=== PATIENT | female | born 1965 | race Caucasian/White ===

== ENCOUNTER 2018-04-10 09:44 | Emergency (ER) | payer BC ==
[2018-04-10 09:50] VITALS: BP 142/70; PULSE 86; RESP 18; TEMP 98.6
--- NOTE | 2018-04-10 10:00 | ED ---
General Adult HPI - General Chief complaint: Neck Pain/Injury Stated complaint: Headahce, shoulder pain Time Seen by Provider: 04/10/18 09:50 Source: patient, RN notes reviewed Mode of arrival: ambulatory Limitations: no limitations - History of Present Illness Initial comments: This is a 53-year-old female presents emergency Department complaining of headaches and left-sided neck pain since February 07. Patient states she is scheduled for an MRI of her shoulder and to follow-up with a neurologist. Patient states she's unable to do the MRI of the shoulder because she is claustrophobic. Patient canceled that MRI today. Patient states the neurology appointment isn't until May and she was hoping to get the MRI done here today. Patient states pain in the left side is mostly in the trapezius muscle. Patient has not been given any muscle relaxants and is having a difficult time taking Motrin because it upsets her stomach. Patient denies any numbness or weakness. Patient denies any trauma to the neck. Patient states the headache is constant in his in the left side of the head where the muscle seems to attach. Patient denies any recent fever chills. Patient denies any neck stiffness. Patient states it does hurt when she flexes her neck to the right. - Related Data Home Medications Medication Instructions Recorded Confirmed Aspirin/Acetaminophen/Caffeine 1 tab PO DAILY PRN 04/10/18 04/10/18 [Excedrin Migraine Caplet] Ibuprofen [Motrin] 800 mg PO TID PRN 04/10/18 04/10/18 Previous Rx's Medication Instructions Recorded Cyclobenzaprine [Flexeril] 10 mg PO TID #20 tab 04/10/18 Allergies Allergy/AdvReac Type Severity Reaction Status Date / Time No Known Allergies Allergy Verified 04/10/18 10:05 Review of Systems ROS Statement: Those systems with pertinent positive or pertinent negative responses have been documented in the HPI. ROS Other: All systems not noted in ROS Statement are negative. Past Medical History Additional Past Medical History / Comment(s): sciatica History of Any Multi-Drug Resistant Organisms: None Reported Past Surgical History: Breast Surgery, Orthopedic Surgery Additional Past Surgical History / Comment(s): R knee Past Psychological History: No Psychological Hx Reported Smoking Status: Current every day smoker Past Alcohol Use History: Occasional Past Drug Use History: None Reported General Exam - General Exam Comments Initial Comments: GENERAL Patient is well-developed and well-nourished. Patient is in mild distress. EYES Patient's pupils are equal and round. Extraocular motion is intact SKIN Unremarkable NEURO The patient is alert and oriented 3 PYSCH Patient has normal interpersonal interactions. MUSCULOSKELETAL Full range of motion of the neck however the left trapezius muscle is very tender to touch along the whole muscle. Limitations: no limitations Course Vital Signs 04/10/18 09:47 Temperature 98.6 F Pulse Rate 86 Respiratory 18 Rate Blood Pressure 142/70 O2 Sat by Pulse 100 Oximetry Medical Decision Making - Medical Decision Making Patient received Toradol IM in the emergency department was feeling slightly better. Patient can follow-up with her primary medical care doctor tomorrow so she can get an earlier neurology appointment and possibly some sedatives for her MRI. Disposition Clinical Impression: Trapezius muscle strain Disposition: HOME SELF-CARE Condition: Good Instructions (If sedation given, give patient instructions): Cervical Strain ( ED) Prescriptions: Cyclobenzaprine [Flexeril] 10 mg PO TID #20 tab Is patient prescribed a controlled substance at d/c from ED?: No Referrals: None,Stated [Primary Care Provider] - 1-2 days Time of Disposition: 10:56
[2018-04-10] MEDS ORDERED: KETOROLAC 60 MG/2 ML VIAL IM STA (10:18)
[2018-04-10] MEDS ORDERED: DIAZEPAM 5 MG/ML 2 ML INJ IM ONE (10:19)
== END 2018-04-10 11:04 | disposition home or self-care (01) ==
LOC: EC 09:44
DX: S46.812A Strain of other muscles, fascia and tendons at shoulder and upper arm level, left arm, initial encounter (principal); M54.2 Cervicalgia; R51 Headache; F17.200 Nicotine dependence, unspecified, uncomplicated; X58.XXXA Exposure to other specified factors, initial encounter
CPT/HCPCS: 99283; 96372 ×2; J3360; J1885

== ENCOUNTER → 2020-03-18 | Outpatient (CLI) | payer OTHER ==
[2020-03-18 12:02] LABS: Basophils # (A) 0.1 k/uL (0-0.2); Basophils % (A) 1 %; Eosinophils # (A) 0.2 k/uL (0-0.7); Eosinophils % (A) 2 %; HCT 48.8 % (34.0-46.0); HGB 16.3 gm/dL (11.4-16.0); Lymphocytes # (A) 2.1 k/uL (1.0-4.8); Lymphocytes % (A) 24 %; MCH 30.8 pg (25.0-35.0); MCHC 33.4 g/dL (31.0-37.0); MCV 92.3 fL (80.0-100.0); Mean Platelet Volume 7.2; Monocytes # (A) 0.5 k/uL (0-1.0); Monocytes % (A) 6 %; Neutrophils # (A) 5.8 k/uL (1.3-7.7); Neutrophils % (A) 66 %; Platelet Count 303 k/uL (150-450); RBC 5.29 m/uL (3.80-5.40); RDW 12.5 % (11.5-15.5); WBC 8.8 k/uL (3.8-10.6)
== END | disposition home or self-care (01) ==
LOC: LABPAT 11:26
PROVIDERS: ATTEND Obstetrics & Gynecology
DX: Z01.818 Encounter for other preprocedural examination (principal); N93.8 Other specified abnormal uterine and vaginal bleeding
CPT/HCPCS: 85025

== ENCOUNTER 2020-04-15 06:26 | Day surgery (SDC) | payer OTHER ==
[2020-04-08 13:19] VITALS: BMI 27.4
--- NOTE | 2020-04-14 18:05 | HP ---
HISTORY AND PHYSICAL DATE OF SURGERY: 04/15/2020 HISTORY OF PRESENT ILLNESS: This is a 55-year-old 0 woman with dysfunctional uterine bleeding and findings of small endometrial lesions consistent with endometrial polyps. She has elected to undergo diagnostic hysteroscopy with NovaSure endometrial ablation and possible polypectomy as indicated. ALLERGIES: None. MEDICATIONS: Anaprox DS 550 mg p.r.n. PAST MEDICAL HISTORY: Anxiety and dysfunctional uterine bleeding. PAST SURGICAL HISTORY: Bilateral breast augmentation 1999, knee surgery to the right knee in 2014. [employer] PAST HISTORY: She is a 0. No history of abnormal Pap smears or STDs. SOCIAL HISTORY: She smokes 1 pack of cigarettes per day. Negative for alcohol or recreational drug use. FAMILY HISTORY: Significant for mother with lung cancer and grandmother with breast cancer. REVIEW OF SYSTEMS: Complete review of systems obtained and negative except for that described in the HPI. PHYSICAL EXAM: GENERAL: This is a pleasant female in no apparent distress. HEENT: Exam is unremarkable. LUNGS: The breathing is nonlabored and her lungs are clear to auscultation bilaterally. HEART: Regular rate and rhythm. ABDOMEN: Soft and nontender. PELVIC EXAMINATION: She has normal female external genitalia without lesions or irritation. Cervix is free of any visible lesions. On bimanual examination, the uterus is small, freely mobile and in the midline. NEUROLOGIC EXAM: Grossly normal with no focal deficits noted. She has appropriate mood and affect. ASSESSMENT: This is a 55-year-old 0 woman with dysfunctional uterine bleeding and finding of small endometrial polyp on pelvic ultrasound. She is scheduled to undergo diagnostic hysteroscopy with NovaSure endometrial ablation, possible polypectomy as indicated. This procedure has been reviewed with the patient in detail including anticipated hospital course and recovery time. Risks include, but are not limited to bleeding, infection, uterine perforation with possible damage to internal structures, anesthesia complications. The patient understands these risks and agrees to proceed. MMODL / IJN: [id number] /
[~2020-04-15 06:26] MED LIST: LIDOCAINE 1% (10MG/ML) FOR IV START INTRADERMA PRN; Pre Op ABX Message 1 EACH MISC MISCELLANE ONE
[2020-04-15] MEDS: LACTATED RINGERS 1,000 ML IV SCH ×2 (06:44→07:13)
[2020-04-15] MEDS ORDERED: ONDANSETRON 4 MG/2 ML VIAL ONE (06:58)
[2020-04-15 07:15] VITALS: RESP 16
[2020-04-15] MEDS ORDERED: ONDANSETRON 4 MG/2 ML VIAL IVP ONE ×2 (07:16→08:45)
[2020-04-15] MEDS ORDERED: DEXAMETHASONE SOD PHOS (MDV) 100 MG/10 ML VIAL IVP ONE (07:16)
[2020-04-15] MEDS ORDERED: MIDAZOLAM 2 MG/2 ML VIAL ONE (07:25)
[2020-04-15] MEDS ORDERED: PROPOFOL 10 MG/ML 20 ML VIAL IV ONE (07:25)
[2020-04-15] MEDS ORDERED: LIDOCAINE 1% INJ 10MG/ML (20 ML MDV) ONE (07:25)
[2020-04-15] MEDS ORDERED: KETOROLAC 15 MG/ML 1 ML VIAL ONE (07:25)
[2020-04-15] MEDS ORDERED: fentaNYL (PF) 50 MCG/ML 2 ML AMP ONE (07:25)
[2020-04-15] MEDS ORDERED: LIDOCAINE 1%-EPI 1:100,000 20 ML VIAL SQ ONE ×2 (07:47)
[2020-04-15] MEDS: HYDROmorphone 1 MG/ML 1 ML SYRINGE IVP ONE ×4 (08:10→08:59)
--- NOTE | 2020-04-15 08:11 | P.OP ---
Date of Procedure: 04/15/20 Preoperative Diagnosis: Dysfunctional uterine bleeding and possible endometrial polyps Postoperative Diagnosis: Dysfunctional uterine bleeding Procedure(s) Performed: Diagnostic hysteroscopy and NovaSure endometrial ablation Anesthesia: MAC Surgeon: Macarena Quinones Estimated Blood Loss (ml): 5 IV fluids (ml): 400 Urine output (ml): 25 Pathology: none sent Condition: stable Disposition: PACU Indications for Procedure: Dysfunctional uterine bleeding and possible endometrial polyps by pelvic ultrasound Operative Findings: Benign-appearing endometrium with no evidence of intracavitary lesions consist ent with endometrial polyp Description of Procedure: After the patient was met in the preoperative holding area and all questions were answered, she was taken to the operating room where anesthetic was administered without incident. She was then positioned, prepped and draped in the dorsal lithotomy position. Appropriate timeout procedure had been undertaken. Exam under anesthetic was performed. The bladder was drained for approximately 25 mL of clear urine. Weighted speculum was placed in the vagina and the cervix was grasped anteriorly with a single-tooth tenaculum. Paracervical block with lidocaine plus epinephrine was placed. The uterus sounded to 8 cm. The cervix was then sequentially dilated using Hegar dilators. This allowed for passage of the diagnostic hysteroscope. The hysteroscope was introduced and the the endometrium and endometrial cavity were inspected. No gross intracavitary lesions consistent with endometrial polyp were visible. The hysteroscope was removed. The cervix was further dilated to allow for passage of the NovaSure ablation device. The NovaSure ablation device was then inserted with a cavity length of 5.0 cm, width of 3.0 cm. Cavity assessment test was passed and the device was enabled. Treatment cycle was 57 seconds with a power of 83 W. Following cessation of the treatment cycle the device was removed and the hysteroscope was reintroduced. Complete desiccation of the endometrium was appreciated. Hysteroscope was removed, tenaculum was removed. The cervix was observed and no active bleeding was noted. Instruments were then removed from the vagina. Patient was awoken from anesthetic without incident and transported to recovery area in good condition. All counts reported to me as correct by the operating room staff.
[2020-04-15 08:16] VITALS: TEMP 97.4
[2020-04-15] MEDS ORDERED: LACTATED RINGERS 1,000 ML IV ONE (09:03)
[2020-04-15 09:51] VITALS: BP 152/88; PULSE 80
== END 2020-04-15 09:58 | disposition home or self-care (01) ==
LOC: OR 06:26
PROVIDERS: ATTEND Obstetrics & Gynecology
DX: N93.8 Other specified abnormal uterine and vaginal bleeding (principal); F41.9 Anxiety disorder, unspecified; Z98.890 Other specified postprocedural states; F17.210 Nicotine dependence, cigarettes, uncomplicated; Z80.1 Family history of malignant neoplasm of trachea, bronchus and lung; Z80.3 Family history of malignant neoplasm of breast; Z87.442 Personal history of urinary calculi; Z79.82 Long term (current) use of aspirin; Z79.899 Other long term (current) drug therapy
CPT/HCPCS: 81025; 58563; J2250; J2405; J2001; J3010; J1170; J1100; J1885; J2704

== ENCOUNTER → 2022-10-19 | Outpatient (CLI) | payer MEDICARE ==
[2022-10-19 21:29] LABS: Basophils # (A) 0.07 X 10*3/uL (0.00-0.10); Eosinophils # (A) 0.12 X 10*3/uL (0.04-0.35); Eosinophils % (A) 1.7 %; HCT 47.8 % (37.2-46.3); Lymphocytes # (A) 1.77 X 10*3/uL (0.90-5.00); MCH 30.5 pg (27.0-32.0); MCHC 33.5 d/dL (32.0-37.0); MCV 91.2 FL (80.0-97.0); Mean Platelet Volume 10.3 FL (9.5-12.2); Monocytes # (A) 0.48 X 10*3/uL (0.20-1.00); Monocytes % (A) 6.8 %; NRBC Per 100 WBC 0 X 10*3/uL (0.00-0.01); Neutrophils # (A) 4.57 X 10*3/uL (1.80-7.70); Neutrophils % (A) 64.5 %; Platelet Count 334 X 10*3/uL (140-440); RBC 5.24 X 10*6/uL (4.10-5.20); WBC 7.08 X 10*3/uL (4.50-10.00)
[2022-10-19 21:35] LABS: ALT 21 U/L (8-44); AST 23 U/L (13-35); Albumin 4.4 d/dL (3.8-4.9); Alkaline Phosphatase 49 U/L (41-126); BUN/Creat Ratio 18.12 Ratio (12.00-20.00); Blood Urea Nitrogen 14.5 mg/dL (9.0-27.0); Calcium 9.4 mg/dL (8.7-10.3); Carbon Dioxide 23.3 mmol/L (21.6-31.8); Chloride 105 mmol/L (96-109); Chol/HDL Ratio 6.03 Ratio; Globulin 2.1 d/dL (1.6-3.3); Glucose 79 mg/dL (70-110); Potassium 4.8 mmol/L (3.5-5.5); Sodium 139 mmol/L (135-145); Total Bilirubin 0.5 mg/dL (0.3-1.2); Total Protein 6.5 d/dL (6.2-8.2)
[2022-10-21 11:20] LABS: Lipoprotein A 88 mg/dL (0-30)
== END | disposition home or self-care (01) ==
LOC: LABWHC1 12:54
PROVIDERS: ATTEND Nurse Practitioner Family
DX: Z00.00 Encounter for general adult medical examination without abnormal findings (principal); I25.10 Atherosclerotic heart disease of native coronary artery without angina pectoris; K29.70 Gastritis, unspecified, without bleeding; K21.9 Gastro-esophageal reflux disease without esophagitis; E78.5 Hyperlipidemia, unspecified; Z79.899 Other long term (current) drug therapy; R51.9 Headache, unspecified
CPT/HCPCS: 36415; 80053; 80061; 82172; 82306; 82607; 82746; 83036; 83695; 84443; 85025; 86141; 86803